=== PATIENT | male | born 1940 | race Hispanic/Latino ===

== ENCOUNTER 2024-12-17 09:23 | Emergency (ER) | payer OTHER, MEDICARE ==
[~2024-12-17] VITALS: Ht 177.8 cm; Wt 113.9 kg
[2024-12-17 09:36] VITALS: TEMP 97.7
--- NOTE | 2024-12-17 09:38 | ERN ---
General Chief Complaint: Mechanical Fall Stated Complaint: FALL Time Seen by MD: 09:28 Source: patient History of Present Illness Initial Comments 84-year-old male coming in after he had a slip and a fall earlier today. Per family member and patient he slipped earlier today falling landing on his face. Per patient and family member landed on the right side of his face in his complaining of right eye discomfort. Allergies: Coded Allergies: beeswax (Unverified Allergy, Unknown, 12/17/24) Past Medical History Past Medical History: Diabetes-Type II, High Cholesterol, Hypertension, Other Medical History Other: bph Past Surgical History: None ROS Dictation CONSTITUTIONAL: No chills, no fever, no weakness, no diaphoresis, no malaise. HEAD/FACE: No signs of trauma. EENT: No eye pain, no blurred vision, no tearing, no double vision, no ear pain, no ear discharge, no nose pain, no nasal congestion, no throat pain, no throat swelling, no mouth pain. RESPIRATORY: No cough, no orthopnea, no SOB, no stridor, no wheezing. CARDIOVASCULAR: No chest pain, no edema, no palpitations, no syncope. GASTROINTESTINAL/ABDOMINAL: No abdominal pain, no constipation, no diarrhea, no nausea, no vomiting. GENITOURINARY: No abnormal discharge, no dysuria, no frequent urination, no hematuria. No complaints of pain in the genitals. MUSCULOSKELETAL: No back pain, no gout, no joint pain, no joint swelling, no muscle pain, no muscle stiffness, no neck pain. INTEGUMENTARY: No change in color, no change in hair/nails, no dryness, no lesion, no lumps, no rash. NEUROLOGICAL/PSYCH: No anxiety, not depressed, no emotional problem, no headache, no numbness, no pre-existing deficit, no history of seizures, no tremors, no weakness. HEMATOLOGIC/LYMPHATIC: Not anemic, no history of blood clots, no apparent bleeding, no bruising, glands not swollen. All Systems Negative, Except as Noted. Physical Exam Physical Exam Dictation VITAL SIGNS: Reviewed. GENERAL APPEARANCE: Alert, oriented x3, no acute distress, obese. HEAD AND FACE: Non-traumatic. EYES: PERRL, pink conjunctivas, eyelid no trauma, anterior chamber clear. EARS: Pinnas intact and no signs of trauma or erythema. Ear canals clear and no discharge. TMs no erythema. NOSE: No discharge, no bleeding. OROPHARYNX: Mouth normal, teeth no caries, tongue pink. Pharynx clear, no erythema. Tonsils no exudates, no abscesses noted. Mucous membrane moist. NECK: Supple, non-tender, no thyromegaly, no masses, no JVD, no bruits. BREAST: Deferred. CHEST: No tenderness, no crepitus, no paradoxical movement, no retractions. LUNGS: Clear, well-ventilated, symmetric, no rales, no wheezing, no rhonchi, no stridor, good breath sounds bilaterally. HEART: Regular rate, regular rhythm, no murmur, no gallops. VASCULAR: No peripheral edema. ABDOMEN: Soft, positive bowel sounds, nondistended, no guarding, nontender, no rebound, no masses no hepatomegaly, no splenomegaly, no Brown's sign, no hernias. RECTAL: Deferred. GENITAL: Deferred. NEUROLOGICAL: Normal speech, gross motor function intact, gross sensory function intact. MUSCULOSKELETAL: Neck nontender, full range of motion, back nontender, full range of motion. EXTREMITIES: Nontender, full range of motion. SKIN: Color pink, dry, no turgor, no rash, no lacerations, no abrasions, no contusions. LYMPHATICS: Deferred. Results Laboratory and Microbiology Labs Reviewed?: Yes EKG/XRAY/US/CT/MRI X-RAY Comment IMAGING REPORT Signed PATIENT: LEEANNE CESAR MR#: [id number] : 1940 SEX: M AGE: 84 LOCATION: [facility] ORDER 9 STATUS: REG [facility] REPORT#: [id number] SERVICE 8 REASON: fall ORDERING PHYSICIAN: DANY NOWAK MD PROCEDURE: SHOL 2V RT - SHOULDER COMP 2+VWS RT EXAM: CR right Shoulder, 2 View. CLINICAL HISTORY: fall COMPARISON: None provided. FINDINGS: BONES: No acute fracture or aggressive appearing osseous lesion. JOINTS: No dislocation. Mild to moderate acromioclavicular joint osteoarthritis. SOFT TISSUES: The soft tissues are unremarkable. IMPRESSION: No acute abnormality evident on examination of the right shoulder. No acute fracture or dislocation. Mild to moderate acromioclavicular joint osteoarthritis. /[place] DICTATED BY: KARISHMA HERNANDEZ Jr., MD DATE: 12/17/24 1144 ELECTRONICALLY SIGNED BY: KARISHMA HERNANDEZ Jr., MD DATE: 12/17/[address] Scan Comment IMAGING REPORT Signed PATIENT: LEEANNE CESAR MR#: [id number] : 1940 SEX: M AGE: 84 LOCATION: [facility] ORDER 9 STATUS: REG REPORT#: [id number] SERVICE 8 REASON: fall ORDERING PHYSICIAN: DANY NOWAK MD PROCEDURE: MAXFACI WO - CT MAXILLOFACIAL W/O CONTRAST EXAM: CT Maxillofacial Without IV contrast. CLINICAL HISTORY: Fall. TECHNIQUE: Axial computed tomography images of the face without intravenous contrast. Sagittal and coronal reformatted images were generated. CONTRAST: None. COMPARISON: None provided. FINDINGS: FACIAL BONES/ORBITS: Focal dehiscence versus old fracture at the inferomedial wall of the left orbit. No acute fracture is visualized. Subcutaneous soft tissue hematoma in the right frontal region. The mandible is intact. The orbits are normal. No retrobulbar hematoma or mass. Presumed component of her prosthesis within the inferior orbit on the left. Clinical correlation is advised to exclude an unexpected foreign body. Small mucosal polyp/retention cyst in the left maxillary sinus. The nasal septum is mildly deviated to the right side. SOFT TISSUES: The soft tissues are unremarkable. IMPRESSION: No acute fracture is visualized. Focal dehiscence versus old fracture at the inferomedial wall of the left orbit. Subcutaneous soft tissue hematoma in the right frontal region. Presumed component of her prosthesis within the inferior orbit on the left. Clinical correlation is advised to exclude an unexpected foreign body. /[place] DICTATED BY: KARISHMA HERNANDEZ Jr., MD DATE: 12/17/24 1253 ELECTRONICALLY SIGNED BY: KARISHMA HERNANDEZ Jr., MD DATE: 12/17/24 1253 MDM MDM: Differential diagnosis: FALL, FACIAL CONTUSION, Rationale: Tests considered and ordered secondary to shared decision making include: Previous outside records reviewed: Old ER visits. Risk of complication and/or morbidity or mortality of patient management: None Medications-Per medication reconciliation Need for hospitalization: Patient does not meet criteria for hospitalization. Need for emergency major/minor surgery: No PATIENT IS A AN 20-YEAR-OLD MALE COMING TRIP AND A FALL. PATIENT IS A HIMSELF IN THE RIGHT SIDE FACE. CT DID NOT DISCLOSE ACUTE FINDINGS. X-RAY HAS BEEN RIGHT SHE HAS BEEN IN HIS DISCLOSE ACUTE FINDINGS A SLING PLACED IN HIS RIGHT SHOULDER COMFORT PATIENT WILL BE DISCHARGED IN STABLE CONDITION. EVALUATED LEFT EYE DRY TO FINDINGS ON CT PATIENT STATES THAT HE HAD SURGERY AGO ON THE LEFT ORBIT AND WITHOUT HAS BEEN ORBITAL BONE OR PROPERTY ORBITAL BONE. HE STATES THAT HE HAS NO DISCOMFORT AT THE MOMENT VISUAL ACUITY INTACT ON BOTH SIDES. ED Course Orders Procedure Category Date Status Time Ct Maxillofacial W/O CT 12/17/24 Resulted Contrast 09:29 Shoulder Comp 2+Vws Rt RAD 12/17/24 Resulted 09:29 Vital Signs Date Time Temp Pulse Resp B/P (MAP) Pulse Ox O2 Delivery O2 Flow Rate FiO2 12/17/24 12:11 82 18 122/63 95 Room Air* 0 21 12/17/24 09:36 97.7 80 18 126/72 96 Room Air* 0 21 12/17/24 09:26 97.7 80 18 126/72 96 Room Air 0 DX & DISP Disposition: Discharge Departure Impression: Primary Impression: Fall Additional Impression: Facial contusion Condition: Stable Additional Instructions: FOLLOW-UP WITH PRIMARY CARE PROVIDER IN 1 TO 2 DAYS. TAKE MEDICATIONS DIRECTED HERE IN THE EMERGENCY ROOM. OKAY TO CONTINUE HOME MEDICATIONS UNLESS OTHERWISE DISCUSSED DURING YOUR VISIT IN THE EMERGENCY ROOM TODAY. RETURN TO YOUR NEAREST EMERGENCY ROOM IF SYMPTOMS WORSEN OR IF THERE IS NO IMPROVEMENT. CALL 911 IF YOU NEED IMMEDIATE ASSISTANCE. TAKE TYLENOL [id number] NEEDED AND IF NO CONTRAINDICATIONS ARE PRESENT. INCREASE ORAL HYDRATION. A WOUND CULTURE OR URINE CULTURE WAS ORDERED HERE IN THE EMERGENCY ROOM DEPARTMENT PLEASE FOLLOW-UP WITH PRIMARY CARE PROVIDER AND ADVISE THEM TO GET REPORTS FROM OUR FACILITY. IF YOU HAD ANY SHARRON WRAP/SPLINTS THAT WERE APPLIED HERE, PLEASE DO NOT REMOVE THEM UNTIL YOU SEE YOUR PRIMARY CARE OR SPECIALTY. REFERRALS: Referrals: TERRY BENOIT MD Time of Disposition: 12:43 DANY NOWAK MD Dec 17, 2024 09:38
--- NOTE | 2024-12-17 10:45 | HMCIMG ---
EXAM: CR right Shoulder, 2 View. CLINICAL HISTORY: fall COMPARISON: None provided. FINDINGS: BONES: No acute fracture or aggressive appearing osseous lesion. JOINTS: No dislocation. Mild to moderate acromioclavicular joint osteoarthritis. SOFT TISSUES: The soft tissues are unremarkable. IMPRESSION: No acute abnormality evident on examination of the right shoulder. No acute fracture or dislocation. Mild to moderate acromioclavicular joint osteoarthritis. /[place]
--- NOTE | 2024-12-17 11:54 | HMCIMG ---
EXAM: CT Maxillofacial Without IV contrast. CLINICAL HISTORY: Fall. TECHNIQUE: Axial computed tomography images of the face without intravenous contrast. Sagittal and coronal reformatted images were generated. CONTRAST: None. COMPARISON: None provided. FINDINGS: FACIAL BONES/ORBITS: Focal dehiscence versus old fracture at the inferomedial wall of the left orbit. No acute fracture is visualized. Subcutaneous soft tissue hematoma in the right frontal region. The mandible is intact. The orbits are normal. No retrobulbar hematoma or mass. Presumed component of her prosthesis within the inferior orbit on the left. Clinical correlation is advised to exclude an unexpected foreign body. Small mucosal polyp/retention cyst in the left maxillary sinus. The nasal septum is mildly deviated to the right side. SOFT TISSUES: The soft tissues are unremarkable. IMPRESSION: No acute fracture is visualized. Focal dehiscence versus old fracture at the inferomedial wall of the left orbit. Subcutaneous soft tissue hematoma in the right frontal region. Presumed component of her prosthesis within the inferior orbit on the left. Clinical correlation is advised to exclude an unexpected foreign body. /[place]
[2024-12-17 12:11] VITALS: BP 122/63; PULSE 82; RESP 18; O2SAT 95
--- NOTE | 2024-12-17 12:51 | NUR ---
SLING POLACED TO RIGHT ARM
== END 2024-12-17 12:57 | disposition home or self-care (01) ==
LOC: EDH 09:23
DX: S00.83XA Contusion of other part of head, initial encounter (principal); E11.9 Type 2 diabetes mellitus without complications; E78.00 Pure hypercholesterolemia, unspecified; I10 Essential (primary) hypertension; Z91.030 Bee allergy status; W01.0XXA Fall on same level from slipping, tripping and stumbling without subsequent striking against object, initial encounter; Y93.89 Activity, other specified; Y92.89 Other specified places as the place of occurrence of the external cause; Y99.8 Other external cause status
CPT/HCPCS: 70486; 73030; 99284